=== PATIENT | male | born 1975 | race Caucasian/White ===

== ENCOUNTER 2019-02-11 07:05 | Emergency (ER) | payer SELFPAY ==
[~2019-02-11] VITALS: Ht 177.8 cm; Wt 83.3 kg
[2019-02-11] MEDS ORDERED: KETOROLAC 60 MG/2 ML ONE (07:41)
[2019-02-11] MEDS ORDERED: KETOROLAC 30 MG/1 ML IM ONE (08:00)
[2019-02-11 08:22] LABS: RAPID INFLUENZA A Negative (Negative); RAPID INFLUENZA B Negative (Negative)
--- NOTE | 2019-02-11 08:57 | NUR ---
REPORT RECIEVED FROM SONALI. PT RESTING. NO NEEDS AT THIS TIME
--- NOTE | 2019-02-11 09:26 | NUR ---
Patient/Caregiver given discharge instructions and they have confirmed that they understand the instructions. Patient ambulatory with steady gait.
[2019-02-11 09:29] VITALS: BP 145/85
== END 2019-02-11 09:30 | disposition home or self-care (01) ==
LOC: ED 09:02
DX: B34.9 Viral infection, unspecified (principal); J00 Acute nasopharyngitis [common cold]
CPT/HCPCS: 71046; 87400; 99284

== ENCOUNTER 2019-03-13 10:08 | Emergency (ER) | payer SELFPAY ==
[~2019-03-13] VITALS: Ht 177.8 cm; Wt 83.2 kg
[2019-03-13 10:20] VITALS: BP 121/97
== END 2019-03-13 11:44 | disposition home or self-care (01) ==
LOC: ED 11:20
DX: T16.2XXA Foreign body in left ear, initial encounter (principal); X58.XXXA Exposure to other specified factors, initial encounter; Y93.89 Activity, other specified; Y92.89 Other specified places as the place of occurrence of the external cause; Y99.8 Other external cause status
CPT/HCPCS: 99284